=== PATIENT | female | born 1980 | race American Indian/Alaskan Native ===

== ENCOUNTER 2020-05-27 03:34 | Emergency (ER) | payer BC, OTHER ==
[2020-05-27] MEDS ORDERED: SODIUM CHLORIDE 0.9% 1000 ML 1,000 ML IV ONE (07:41)
[2020-05-27] MEDS ORDERED: ONDANSETRON 4 MG/2 ML INJ IM ONE (07:42)
[2020-05-27] MEDS ORDERED: MORPHINE 2 MG/1 ML INJ IV ONE (07:43)
--- NOTE | 2020-05-27 07:50 | Emergency Department Report ---
ED General Adult HPI - General Chief complaint: Headache Stated complaint: HEAD PAIN Time Seen by Provider: 05/27/20 07:24 Source: patient Mode of arrival: Stretcher Limitations: No Limitations - History of Present Illness Initial comments: This is a 39-year-old morbidly obese female. With a past medical history of diabetes,hypertension and obstructive sleep apnea. Patient reports headache x5 days associated with facial pain, body pain,nausea, vomiting and loose stools. She has a runny nose and a cough that is productive of clear mucus. Patient st ates that this is the worst headache of her life and last night she woke up and found herself on the floor. She is currently in no apparent distress. She denies chest pain and shortness of breath no fever. -: days(s) (5) Location: head, face Radiation: non-radiation Severity scale (0 -10): 10 Quality: aching Consistency: constant Improves with: none Worsens with: movement Associated Symptoms: cough, malaise, nausea/vomiting. denies: confusion, chest pain, diaphoresis, fever/chills, loss of appetite, rash, seizure, shortness of breath, syncope, weakness Treatments Prior to Arrival: NSAID - Related Data Previous Rx's Medication Instructions Recorded Last Taken Type oxyCODONE /ACETAMINOPHEN [Percocet 1 tab PO Q6HR PRN #21 tablet 09/14/14 Unknown Rx 5/325] Ibuprofen [Motrin] 800 mg PO Q8HR PRN #15 tablet 05/27/20 Unknown Rx Allergies Allergy/AdvReac Type Severity Reaction Status Date / Time No Known Allergies Allergy Unverified 09/13/14 23:11 ED Review of Systems ROS: Stated complaint: HEAD PAIN Other details as noted in HPI Comment: All other systems reviewed and negative Constitutional: malaise. denies: chills, fever Eyes: denies: eye pain, eye discharge, vision change ENT: denies: ear pain, throat pain, dental pain, epistaxis Respiratory: cough. denies: shortness of breath, wheezing Cardiovascular: denies: chest pain, palpitations, dyspnea on exertion, edema, syncope Endocrine: no symptoms reported Gastrointestinal: nausea, vomiting, diarrhea. denies: abdominal pain, constipation Genitourinary: denies: dysuria, hematuria Musculoskeletal: denies: back pain Skin: denies: rash, change in color Neurological: headache, vertigo. denies: numbness, paresthesias, confusion, abnormal gait Psychiatric: denies: anxiety ED Past Medical Hx - Past Medical History Previous Medical History?: Yes Hx Hypertension: Yes Additional medical history: OBESITY, sleep apnea - Surgical History Past Surgical History?: Yes Additional Surgical History: Right ankle hardware. - Social History Smoking Status: Current Every Day Smoker Substance Use Type: Marijuana - Medications Home Medications: Home Medications Medication Instructions Recorded Confirmed Last Taken Type oxyCODONE /ACETAMINOPHEN [Percocet 1 tab PO Q6HR PRN #21 tablet 09/14/14 Unknown Rx 5/325] Ibuprofen [Motrin] 800 mg PO Q8HR PRN #15 tablet 05/27/20 Unknown Rx ED Physical Exam - General Limitations: No Limitations General appearance: alert, in no apparent distress - Head Head exam: Present: atraumatic, normal inspection, other (Maxillary sinus tenderness frontal sinus tenderness) - Eye Eye exam: Present: normal appearance, PERRL, EOMI. Absent: conjunctival injection, periorbital swelling, periorbital tenderness - ENT ENT exam: Present: normal exam, mucous membranes moist, TM's normal bilaterally - Neck Neck exam: Present: normal inspection, full ROM. Absent: lymphadenopathy - Respiratory Respiratory exam: Present: normal lung sounds bilaterally. Absent: respiratory distress - Cardiovascular Cardiovascular Exam: Present: regular rate, normal heart sounds - GI/Abdominal GI/Abdominal exam: Present: soft - Rectal Rectal exam: Present: deferred - Extremities Exam Extremities exam: Present: normal inspection - Back Exam Back exam: Present: normal inspection - Neurological Exam Neurological exam: Present: alert, oriented X3, CN II-XII intact, normal gait - Psychiatric Psychiatric exam: Present: normal affect - Skin Skin exam: Present: warm, dry, intact ED Course Vital Signs 05/27/20 05/27/20 05/27/20 04:45 08:15 09:27 Temperature 97.7 F Pulse Rate 67 Respiratory 20 16 18 Rate Blood Pressure 146/89 O2 Sat by Pulse 96 Oximetry 05/27/20 05/27/20 09:57 13:35 Temperature Pulse Rate Respiratory 16 16 Rate Blood Pressure O2 Sat by Pulse Oximetry - Reevaluation(s) Reevaluation #1: 05/27/20 11:48 Into see patient she states that her head is still hurting there is been no relief since receiving morphine Toradol and Benadryl. Order placed for rapid influenza test. Urinalysis is pending order for Percocet 1 tab p.o. ED Medical Decision Making - Lab Data Result diagrams: 05/27/20 07:58 05/27/20 07:58 - Radiology Data Radiology results: report reviewed CHEST 2 VIEWS INDICATION: uri symptoms. COMPARISON: None FINDINGS: Support devices: None. Heart: Within normal limits. Lungs: No acute air space or interstitial disease. Pleura: No significant pleural effusion. No pneumothorax. Additional findings: None. IMPRESSION: 1. No acute findings. CT HEAD/BRAIN WO CON INDICATION / CLINICAL INFORMATION: Headache/syncope x5 days. TECHNIQUE: All CT scans at this location are performed using CT dose reduction for ALARA by means of automated exposure control. COMPARISON: None available. FINDINGS: The ventricular system is normal in size and configuration. No focal lesion or mass effect is seen. There is no evidence of intracranial hemorrhage or major vessel occlusion. The calvarium is intact. The paranasal sinuses and mastoid air cells are clear area IMPRESSION: No acute abnormality is identified. - Medical Decision Making 39-year-old morbidly obese patient with complaints of headache x5 days vomiting and diarrhea. Headache at home was unrelieved with Excedrin Migraine. CAT scan of the head is within normal limits CBC CMP with no acute findings. Chest x-ray with no acute findings urinalysis is negative for UTI. Negative rapid influenza test patient in no distress. I discussed all findings with patient possible viral illness and headache of unknown etiology Critical care attestation.: If time is entered above; I have spent that time in minutes in the direct care of this critically ill patient, excluding procedure time. ED Disposition Clinical Impression: Viral illness Headache Qualifiers: Headache type: tension-type Headache chronicity pattern: episodic headache Intractability: not intractable Qualified Code(s): G44.219 - Episodic tension- type headache, not intractable Disposition: DC-01 TO HOME OR SELFCARE Is pt being admited?: No Does the pt Need Aspirin: No Condition: Stable Instructions: General Headache Without Cause, Viral Illness, Adult Additional Instructions: Rest increase oral hydration take drinking at least 6 to 8 glasses of water per day take all your home medications as previously prescribed follow-up with your primary care doctor in 3 to 5 days or sooner if needed Prescriptions: Ibuprofen [Motrin] 800 mg PO Q8HR PRN #15 tablet PRN Reason: Pain, Moderate (4-6) Referrals: PRIMARY CARE, [Primary Care Provider] - 3-5 Days Time of Disposition: 14:31
--- NOTE | 2020-05-27 08:34 | Cat Scan Report ---
CT HEAD/BRAIN WO CON INDICATION / CLINICAL INFORMATION: Headache/syncope x5 days. TECHNIQUE: All CT scans at this location are performed using CT dose reduction for ALARA by means of automated e xposure control. COMPARISON: None available. FINDINGS: The ventricular system is normal in size and configuration. No focal lesion or mass effect is seen. T here is no evidence of intracranial hemorrhage or major vessel occlusion. The calvarium is intact. The paranasal sinuses and mastoid air cells are clear area IMPRESSION: No acute abnormality is identified. Signer Name: Reymundo Hennessy MD Signed: 05/27/2020 8:30 AM Workstation Name: [id number]
[2020-05-27 08:49] LABS: Basophils # (Auto) 0.1 K/mm3 (0.0-0.1); Basophils % (Auto) 0.6 % (0.0-1.8); Eosinophils % (Auto) 0.2 % (0.0-4.3); Hematocrit 39.9 % (30.3-42.9); Hemoglobin 13.7 gm/dl (10.1-14.3); Lymphocytes # (Auto) 1.6 K/mm3 (1.2-5.4); Lymphocytes % (Auto) 17.3 % (13.4-35.0); Mean Corpuscular HGB Conc 34 % (30-34); Mean Corpuscular Volume 91 fl (79-97); Monocytes # (Auto) 0.8 K/mm3 (0.0-0.8); Monocytes % (Auto) 8.9 % (0.0-7.3); Platelet Count 286 K/mm3 (140-440); Red Cell Distribution Width 13.3 % (13.2-15.2)
[2020-05-27] MEDS ORDERED: KETOROLAC 30 MG/1 ML INJ IV ONE (09:05)
[2020-05-27] MEDS: diphenhydrAMINE 50 MG/ML VIAL IV ONE (09:27)
[2020-05-27 09:34] LABS: Alanine Aminotransferase 22 units/L (7-56); Albumin 3.9 g/dL (3.9-5); Blood Urea Nitrogen 7 mg/dL (7-17); Calcium 9.6 mg/dL (8.4-10.2); Hemolysis Index 4
[2020-05-27 09:40] LABS: BUN/Creatinine Ratio 14
--- NOTE | 2020-05-27 09:40 | XRay Report ---
CHEST 2 VIEWS INDICATION: uri symptoms. COMPARISON: None FINDINGS: Support devices: None. Heart: Within normal limits. Lungs: No acute air space or interstitial disease. Pleura: No significant pleural effusion. No pneumothorax. Additional findings: None. IMPRESSION: 1. No acute findings. Signer Name: Dylan Hernandes MD Signed: 05/27/2020 9:35 AM Workstation Name: [id number]
[2020-05-27] MEDS ORDERED: oxyCODONE /ACETAMINOPHEN 5-325MG TAB PO PRN (11:48)
[2020-05-27 13:33] LABS: Bacteria,Urine 1+ /HPF (Negative); Bilirubin,Urine NEG (Negative); Blood,Urine NEG (Negative); Color,Urine Yellow (Yellow); Mucus,Urine FEW /HPF; Protein,Urine <15 mg/dL mg/dL (Negative); Urobilinogen,Urine < 2.0 mg/dL (<2.0)
[2020-05-27 14:54] VITALS: BP 134/51
== END 2020-05-27 14:54 | disposition home or self-care (01) ==
LOC: ED 03:34
DX: B34.9 Viral infection, unspecified (principal); R51.9 Headache, unspecified; I10 Essential (primary) hypertension; E66.9 Obesity, unspecified; F12.90 Cannabis use, unspecified, uncomplicated; F17.200 Nicotine dependence, unspecified, uncomplicated; Z79.899 Other long term (current) drug therapy; Z98.890 Other specified postprocedural states; Z68.44 Body mass index [BMI] 60.0-69.9, adult
CPT/HCPCS: 36415; 70450; 71046; 80053; 81001; 83690; 84703; 85025; 87400; 96361; 96372; 96374; 96375; 99285; J1200; J1885; J2270; J2405; J7030